=== PATIENT | female | born 1945 | race Caucasian/White ===

== ENCOUNTER 2019-12-09 12:55 | Outpatient (CLI) | payer MEDICARE, SELFPAY ==
--- NOTE | ~2019-12-09 | MM_ITS ---
EXAMINATION: MM screening [facility] BI w doretha HISTORY: Screening TECHNIQUE: Craniocaudal and mediolateral oblique 3-D tomosynthesis images were obtained and synthetic 2-D images were generated. CAD analysis was submitted and interpreted. COMPARISON: Comparison to multiple prior studies sequentially, with oldest reviewed study dated 03/01. BREAST PARENCHYMAL COMPOSITION: There are scattered areas of fibroglandular density. FINDINGS: There is no evidence of suspicious mass, calcification, or architectural distortion to sugg est malignancy in either breast. There has been no suspicious interval change. IMPRESSION: 1. No mammographic evidence of malignancy. 2. Recommend routine screening mammography in one year. BI-RADS Category 1: Negative Reviewed, dictated and finalized at location A.
== END 2019-12-09 12:56 | disposition home or self-care (01) ==
PROVIDERS: PCP Family Medicine; Visit Provider Family Medicine
DX: Z12.31 Encounter for screening mammogram for malignant neoplasm of breast (principal)
CPT/HCPCS: 77063; 77067

== ENCOUNTER 2021-03-13 13:34 | Outpatient (CLI) | payer MEDICARE, SELFPAY ==
--- NOTE | ~2021-03-13 | MM_ITS ---
EXAMINATION: MM screening [facility] BI w doretha HISTORY: Screening mammogram TECHNIQUE: Craniocaudal and mediolateral oblique 3-D tomosynthesis images were obtained and synthetic 2-D images were generated. CAD analysis was submitted and interpreted. COMPARISON: 12/09/2019, 03/18/2013, 03/30/2010 BREAST PARENCHYMAL COMPOSITION: There are scattered areas of fibroglandular density. FINDINGS: There is no evidence of suspicious mass, calcification, or architectural distortion to sugg est malignancy in either breast. There has been no suspicious interval change. IMPRESSION: 1. No mammographic evidence of malignancy. 2. Recommend routine screening mammography in one year. BI-RADS Category 1: Negative Reviewed, dictated and finalized at location A. HBOARD FILLING MACHINE OPERATOR
== END 2021-03-13 13:35 | disposition home or self-care (01) ==
LOC: ANHIMG 13:35
PROVIDERS: PCP Family Medicine; Visit Provider Family Medicine
DX: Z12.31 Encounter for screening mammogram for malignant neoplasm of breast (principal)
CPT/HCPCS: 77063; 77067

== ENCOUNTER 2021-11-16 09:31 | Outpatient (CLI) | payer MEDICARE, SELFPAY ==
--- NOTE | ~2021-11-16 | XR_ITS ---
EXAMINATION: XR knee LT min 4V DATE: 11/16/2021 10:00 INDICATION: Left knee pain. TECHNIQUE: 4 views of left knee were obtained. COMPARISON: None. FINDINGS: There is lateral subluxation of patella. No fracture. There is moderate osteoarthritis of p atellofemoral compartment and mild osteoarthritis of medial and lateral compartments. There is a smal l knee joint effusion with loose body. IMPRESSION: 1. Moderate left knee osteoarthritis. 2. Small left knee joint effusion with loose body. Reviewed, dictated and finalized at location A.
== END 2021-11-16 09:32 | disposition home or self-care (01) ==
LOC: ANHIMG 09:42
PROVIDERS: PCP Family Medicine; Visit Provider Nurse Practitioner Adult Health
DX: M17.12 Unilateral primary osteoarthritis, left knee (principal); M25.462 Effusion, left knee; M23.42 Loose body in knee, left knee
CPT/HCPCS: 73564

== ENCOUNTER 2021-11-29 14:28 | Outpatient (CLI) | payer MEDICARE, SELFPAY ==
--- NOTE | ~2021-11-29 | CT_ITS ---
EXAMINATION: CT knee LT wo con DATE: 11/29/2021 14:59 INDICATION: Left knee osteoarthritis with pain TECHNIQUE: Computed tomography (CT) of the left knee was performed without intravenous contrast. Sagi ttal and coronal reconstructions were created. Automated exposure control and iterative reconstructio n technique were employed. The dose-length product was 549.57 mGy-cm. COMPARISON: 11/13/2021 FINDINGS: No fracture. 6 mm lateral patellar subluxation and mild lateral patellar tilt. Severe osteoarthritis with subarticular cystic change at the lateral aspect of the patellofemoral articulation. Large roxana nal osteophytes along the lateral sides of the trochlea. At least mild osteoarthritis in the medial a nd lateral compartments of the knee with mild joint space narrowing and tiny marginal osteophytes at the medial compartment and with small to moderate size marginal osteophytes at the lateral compartmen t. Small left knee joint effusion. Small osteochondral body seen in the lateral gutter of the suprapa tellar pouch. Small Bain's cyst. IMPRESSION: 1. Tricompartmental osteoarthritis at left knee, severe at the lateral patellofemoral compartment. Reviewed, dictated and finalized at location A. IMPRESSION: 1. Tricompartmental osteoarthritis at left knee, severe at the lateral patellof emoral compartment.
== END 2021-11-29 14:29 | disposition home or self-care (01) ==
PROVIDERS: PCP Nurse Practitioner Adult Health; Visit Provider Nurse Practitioner Adult Health
DX: M17.12 Unilateral primary osteoarthritis, left knee (principal); M25.462 Effusion, left knee
CPT/HCPCS: 73700

== ENCOUNTER 2022-01-09 06:55 | Outpatient (CLI) | payer MEDICARE, SELFPAY ==
--- NOTE | ~2022-01-09 | MR_ITS ---
EXAMINATION: MR lumbar spine wo con DATE: 01/09/2022 07:57 INDICATION: Polyneuropathy. TECHNIQUE: Magnetic resonance imaging (MRI) of the lumbar spine was performed without intravenous con trast. Sequences included sagittal T2-weighted FSE, sagittal T2-weighted FS FSE, sagittal T1-weighted FSE, and axial T2-weighted FSE. COMPARISON: None FINDINGS: There is a transitional segment at lumbosacral junction that is designated L5. There is 8 d egrees dextrocurvature of lumbar spine. There is 5 mm anterolisthesis of L4 on L5. There are Schmorl' s nodes at multiple levels. There is mildly decreased disc height at T12-L1, moderately decreased dis c height at L1-L2 and L2-L3, and mildly decreased disc height at L4-L5. The distal spinal cord signal intensity is normal. The conus medullaris is at T12. The following disc levels are specifically disc ussed: T12-L1: The disc is bulging with superimposed left subarticular zone extrusion. There is moderate hiwot ateral facet joint osteoarthritis. There is mild bilateral neural foraminal stenosis. There is mild c entral canal stenosis. L1-L2: The disc is bulging with superimposed left central extrusion. There is mild bilateral facet louise int osteoarthritis. There is mild bilateral neural foraminal stenosis. There is mild central canal st enosis. L2-L3: The disc is bulging and has an annular fissure. There is mild bilateral facet joint osteoarthr itis. There is mild bilateral neural foraminal stenosis. There is mild central canal stenosis. L3-L4: The disc is bulging. There is severe bilateral facet joint osteoarthritis. There is mild bilat eral neural foraminal stenosis. There is mild central canal stenosis. L4-L5: The disc does not extend beyond the endplate margin. There is ankylosis of the facet joints wi th severe hypertrophy. There is no neural foraminal stenosis. There is no central canal stenosis. L5-S1: There is a left foraminal protrusion. There is no facet joint osteoarthritis. There is mild le ft neural foraminal stenosis. There is no central canal stenosis. IMPRESSION: 1. Moderate lumbar spondylosis. Reviewed, dictated and finalized at location A.
--- NOTE | ~2022-01-09 | MR_ITS ---
EXAMINATION: MR knee LT wo con DATE: 01/09/2022 08:04 INDICATION: Left knee pain, osteoarthritis and left knee joint effusion. TECHNIQUE: Magnetic resonance imaging (MRI) of the left knee was performed without intravenous contra st. Sequences included coronal PD-weighted FSE, coronal PD-weighted FS FSE, sagittal T2-weighted FSE , sagittal PD-weighted FS FSE and axial PD weighted fat saturated FSE. COMPARISON: Left knee radiographs dated 11/16/[address] dated 11/29/2021 FINDINGS: Medial compartment: Complex tear of the posterior horn of the medial meniscus which is decreased in size with irregular c ontour along the free edge and cephalad articular surface. Intermediate signal intensity tissue exten ds approximately 12 mm medial collateral with along the posterior superior margin of the posterior ho rn of the meniscus measuring proximal a 4 x 4 mm in orthogonal dimensions which could represent eithe r a loose body or potentially a displaced meniscal flap. Diffuse partial thickness cartilage loss wit h chondral surface regularity along the weightbearing medial femoral condyle. There are few small foc i of underlying cortical irregularity and minimal edema-like subarticular marrow signal change. Addit ional partial thickness cartilage loss with smooth chondral surface along the medial tibial plateau. Small marginal osteophytes are present. Lateral compartment: Lateral meniscus is normal. Small region of shallow chondral ulceration at the anterior weightbearing lateral femoral condyle. Additional deep chondral fissuring at the junction of the anterior and cent ral weightbearing lateral femoral condyle. Mild partial-thickness cartilage loss with smooth chondral surface along the posterior half of the lateral tibial plateau. Small marginal osteophytes are prese nt. Patellofemoral compartment: Full/near full-thickness cartilage loss throughout the majority the lateral patellar facet and juxtap osed lateral trochlea with associated cortical irregularity and subarticular cystlike changes. Ligaments and tendons: Anterior and posterior cruciate ligaments are normal. The medial collateral ligament and fibular greg ateral ligament complex are normal. Small enthesophyte at the distal patellar insertion of the otherw ise normal quadriceps tendon. There is a lax appearance to the normal patellar tendon resulting in se veral bands of magic angle artifact extending across the tendon. The visualized medial and lateral iverson mstring tendons are normal. Fluid: Small left knee joint effusion. 10 mm loose osteochondral body lateral gutter of the suprapatellar po uch. Osseous/other: Bone alignment is normal. No fracture. What has previously been interpreted a large marginal osteophy te arising from the lateral side of the lateral femoral condyle demonstrates a 2 mm thick overlying c artilage cap consistent with a pedunculated osteochondroma. This exerts mass effect upon the overlyin g iliotibial band which is mildly thickened with mild increased signal consistent with secondary tend inopathy without discrete tear. IMPRESSION: 1. Complex tear of the posterior horn of the medial meniscus with likely small displaced meniscal fla p. 2. Tricompartmental osteoarthritis, severe with high-grade chondromalacia at the lateral patellofemor al compartment, mild to moderate severity with moderate and high-grade chondral malacia medial compar tment and mild with moderate grade chondromalacia in the lateral compartment. 3. Large osteochondroma arising from the lateral nonarticular surface of the lateral femoral condyle which exerts mass effect upon the underlying iliotibial band with likely secondary mild tendinopathy without tear. Reviewed, dictated and finalized at location B. IMPRESSION:
== END 2022-01-09 06:56 | disposition home or self-care (01) ==
PROVIDERS: PCP Family Medicine; Referring Provider Psychiatry & Neurology Neurology; Visit Provider Nurse Practitioner Adult Health
DX: G62.9 Polyneuropathy, unspecified (principal); M17.12 Unilateral primary osteoarthritis, left knee; M25.462 Effusion, left knee; M47.817 Spondylosis without myelopathy or radiculopathy, lumbosacral region; M48.07 Spinal stenosis, lumbosacral region; S83.232A Complex tear of medial meniscus, current injury, left knee, initial encounter; M94.262 Chondromalacia, left knee; D16.21 Benign neoplasm of long bones of right lower limb
CPT/HCPCS: 72148; 73721

== ENCOUNTER 2022-01-10 08:03 | Outpatient (CLI) | payer MEDICARE, SELFPAY ==
--- NOTE | ~2022-01-10 | MR_ITS ---
EXAMINATION: MR cervical spine wo con, MR thoracic spine wo con DATE: 01/10/2022 09:15 INDICATION: Polyneuropathy TECHNIQUE: 1. Magnetic resonance imaging (MRI) of the cervical spine was performed without intravenous contrast. Sequences included sagittal T2-weighted FSE, sagittal T2-weighted FS FSE, sagittal T1-weighted FSE, axial MERGE and axial T2-weighted FSE. 2. MRI of the thoracic spine was performed without intravenous contrast. Sagittal localizer T1-weight ed FSE of the cervicothoracic spine was obtained. Thoracic spine sequences included sagittal T2-weigh do FSE, sagittal T1-weighted SE, Sagittal T2-weighted FS FSE, and axial T2-weighted FSE. COMPARISON: None FINDINGS: Cervical spine: Moderate osteoarthritis at the atlantoaxial articulation. Severe osteoarthritis at the articulation o f the right lateral mass of C1 and C2. 1.5 mm retrolisthesis of C2 on C3. Vertebral body heights are normal. Bone marrow signal intensity is normal. No fracture. Moderate disc height loss at C5-C6 and mild disc height loss at C2-C3 through C4-C5 and at C7-T1. Cord signal intensity is normal. Cervical soft tissues are unremarkable. The following disc levels are specifically discussed: C2-C3: Disc is mildly bulging. There is mild right uncovertebral joint osteoarthritis. There is no fa cet joint osteoarthritis. There is no neural foraminal stenosis. There is no central canal stenosis. C3-C4: Disc is bulging. There is moderate left and severe right uncovertebral joint osteoarthritis. T here is moderate left and severe right facet joint osteoarthritis. There is mild left and moderate ri ght neural foraminal stenosis. There is mild to moderate with prominent on the right where there is i ndentation of the right ventral surface of the cord. central canal stenosis. C4-C5: Disc is bulging. There is moderate bilateral uncovertebral joint osteoarthritis. There is tara re bilateral facet joint osteoarthritis. There is moderate bilateral neural foraminal stenosis. There is mild central canal stenosis with flattening of the ventral surface of the cord. C5-C6: Disc is bulging. There is severe bilateral uncovertebral joint osteoarthritis. There is mild r ight and moderate to severe left facet joint osteoarthritis. There is moderate bilateral neural edwin inal stenosis. There is mild central canal stenosis with mild flattening the ventral surface of the c ord. C6-C7: Disc is bulging. There is mild left and moderate right uncovertebral joint osteoarthritis. The re is moderate right and mild to moderate left facet joint osteoarthritis. There is mild right neural foraminal stenosis. There is mild central canal stenosis. C7-T1: The disc does not extend beyond the endplate margin. There is no uncovertebral joint osteoarth ritis. There is mild to moderate right and severe left facet joint osteoarthritis. There is mild neur al foraminal stenosis. There is no central canal stenosis. Thoracic spine: Mild thoracic kyphosis. Minimal likely physiologic anterior wedging at T11 and T12. Remaining vertebr al body heights are normal. There are bridging anterior osteophytes at a few levels in the thoracic s pine. Multilevel mild disc height loss from C7-T1 through T7-T8. Mild diffuse disc bulge at T1-T2 wit h no significant central canal stenosis. Remaining thoracic discs do not extend beyond the endplate m argins. Mild diffuse disc bulge with superimposed annular fissure and left paracentral disc extrusion resulting in mild central canal stenosis at T12-L1. Moderate to severe facet osteoarthritis resultin g in mild neural foraminal stenosis bilaterally at T1-T2. Mild facet osteoarthritis without neural fo raminal stenosis throughout the remainder of the more caudal thoracic spine. Moderate facet osteoarth ritis bilaterally resulting in mild bilateral neural foraminal stenosis at T12-L1. There is normal co rd signal throughout. Para
== END 2022-01-10 08:04 | disposition home or self-care (01) ==
PROVIDERS: PCP Family Medicine; Visit Provider Psychiatry & Neurology Neurology
DX: G62.9 Polyneuropathy, unspecified (principal); M47.813 Spondylosis without myelopathy or radiculopathy, cervicothoracic region; M48.03 Spinal stenosis, cervicothoracic region
CPT/HCPCS: 72141; 72146

== ENCOUNTER 2025-03-04 09:11 | Outpatient (CLI) | payer MEDICARE, SELFPAY ==
--- NOTE | ~2025-03-04 | MM_ITS ---
EXAMINATION: MM screening letty BI w doretha HISTORY: Screening. TECHNIQUE: Craniocaudal and mediolateral oblique 3-D tomosynthesis images were obtained and synthetic 2-D images were generated. CAD analysis was submitted and interpreted. COMPARISON: 2020 and 2019 BREAST PARENCHYMAL COMPOSITION: Not Dense: There are scattered areas of fibroglandular FINDINGS: No suspicious masses are seen. There are no suspicious calcifications. No unexplained architectural distortion is seen. There are no skin or nipple abnormalities identified. There is no adenopathy seen on the images submitted. IMPRESSION: No mammographic evidence to suggest malignancy is seen. The patient may return to screening mammography as per ACR guidelines. BI-RADS 1 - Negative. Reviewed, dictated and finalized at location C. [facility] REPORTER
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
--- OUTSIDE RECORDS SUMMARY | 2025-03-04 09:57 | XMS_ITS | Encounter Summary ---
Author Organization [facility] Address [address] [place] [address] Care Team Providers Care Hand Hose Cutter Name Role Phone Janet, Mic Venkatesh Primary Care Provide r Reason for Visit * Reason Onset Date Comments Left clavical fx 12/29/[address] message for Dr[address] Lopez at exchange Encounter Details Date Type Department Care Team (Late st Contact Info) Description 12/29/2023 Telephone [facility] Admitting [address] [place] [address] [place] [address] [place] [address] Left clavical fx (Left voicemail message for Dr. Lopez at exchange) Social History Tobacco Use Types Packs/Day Years Used Date Smoking Tobacco: Never Assessed Feeling Safe Answer Date Recorded Are you in a relationship wi th someone who hurts you emotionally and/or physically? 

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
--- OUTSIDE RECORDS SUMMARY | 2025-03-04 09:57 | XMS_ITS | Patient Health Record ---
Author Organization [facility] Address [address] [place], [place] [id number] Care Team Providers Care Senior Construction Manager Name Role Phone NIMO Irving Unavailable [phone] Dhiraj Velazquez Unavailable Unavailable Reason For Referral No Information Social History Social History Additional Details Category Social Info Options Details Migrated Social History Migrated Social History History of tobacco use : , Smoking Status : Never smoked Plan Of Treatment No Information Insurance Providers Payer Name Payer Address Payer Phone Subscriber Number Group Number Insured Name Patient Relationship to Insured Coverage Start Date Coverage End Date [facility] [address] [place] [address] [id number] ROBERT ADAMS Self - patient is the insured
== END 2025-03-04 09:12 | disposition home or self-care (01) ==
LOC: ANHFOHIMG 09:14
DX: Z12.31 Encounter for screening mammogram for malignant neoplasm of breast (principal)
CPT/HCPCS: 77063; 77067